=== PATIENT | male | born 1935 | race African-American/Black ===

== ENCOUNTER 2016-11-19 21:45 | Emergency (ER) | payer OTHER ==
[2016-11-19] MEDS ORDERED: NS 1/2 1000 ML IV 1,000 ML IV SCH (22:00)
--- NOTE | 2016-11-19 22:04 | CT ---
EXAM: CT BRAIN WITHOUT CONTRAST INDICATION: Right-sided weakness COMPARISION: Prior exam from June 28, 2016 TECHNIQUE: Routine axial CT of the brain was performed without intravenous contrast. 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 Old right MCA territory infarct noted . There is secon paresh encephalomalacia predominately involving the temporal lobe. The ventricular system is not abnor js dilated. No intra or extra-axial mass or hemorrhage. The cherry-white junction is preserved. The re is no evidence of subacute ischemic change. The basilar cisterns are clear. The skull is intact. The paranasal sinuses and mastoid air cells are clear. IMPRESSION: There is bilateral cortical atrophy as described above. Old right MCA territory infarct noted. No acute abnormality identified. Reported By:
--- NOTE | 2016-11-19 22:10 | DR.GENAD ---
HPI - HPI Comment HPI Comment: PATIENT IS DIABETIC AND HAVE HTN. 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 WAS ACTIVE ALL DAY TODAY. - Complaint/Symptoms Chief Complaint Doctors Comments: AT 21:15PM TONIGHT, GOT UP FROM CHAIR AND FELL ON THE FLOOR. HE WAS NOT TALKING BUT ALERT. HIS RIGHT SIDE WAS WEAK AND RIGHT FACE WAS WEAK. IN ED, SPEECH IS SLURRED. NO FEVER. - Nurses notes reviewed Nurses Notes Review: Yes - Source History Provided: Family Member - Mode of Arrival Mode of Arrival: Stretcher - Timing Came on: Suddenly - Duration Duration: Constant Duration: Minutes - Severity Severity: Severe PMH - PMH Past Medical History: Arthritis, Coronary Artery Disease, CVA, Diabetes, Dyslipidemia, GERD, Hypertension Past Surgical History: No Surgical History: No History - Family History Family Medical History: Diabetes Mellitus, Hypertension - Social History Do you use any recreational Drugs:: No ROS - Review of Systems Constitutional: Weakness, Fatigue. negative: Chills, Fever Eyes: negative: Eye Pain, Discharge ENTM: negative: Ear Pain, Nose Discharge, Nose Congestion, Throat Pain Respiratoy: No Symptoms Reported, Non-Productive Cough, Short of Breath. negative: Wheezing, Hemoptysis Cardiovascular: negative: Chest Pain, Edema, Palpitations Gastrointestinal/Abdominal: negative: Abdominal Pain, Diarrhea, Nausea, Vomiting Genitourinary: negative: Dysuria, Hematuria Neurological: Headache, Weakness, Dizziness, Problems Walking, Speech Problem, Other (RT SIDED WEAKNESS, RIGHT FACIAL WEAKNESS) Musculoskeletal: Back Pain Integumentary: Change in Color Hematologic/Lymphatic: Easy Bleeding, Easy Bruising Endocrine: No Symptoms Reported All Other Systems: Reviewed and Negative PE - Vital Signs Vitals: Temperature 97.8 F Pulse Rate [Apical] 84 Pulse Rate 77 Respiratory Rate 24 Blood Pressure [Right Arm] 128/77 Blood Pressure [Left Arm] 91/55 Blood Pressure 120/81 O2 Sat by Pulse Oximetry 99 - General Limitations: Altered Mental Status General Appearance: Alert - Head Head Exam: Normal Inspection - Eyes Eye exam: PERRL (SMALL EQUAL PUPILS), EOMI (WEAKNESS DOWNWARD MOVEMENT). negative: Scleral Icterus, Conjunctival Injection, Nystagmus, Periorbital Swelling, Periorbital Tenderness - ENT ENT Exam: Normal External Ear Exam External Ear Exam: Normal External Inspection TM/Canal Exam: Bilateral Normal Nose Exam: Normal Nose Exam Mouth Exam: Normal Inspection Throat Exam: Normal Inspection - Neck Neck Exam: Trachea Midline - Chest Chest Inspection: Symmetric Chest Wall Rise - Respiratory Respiratory Exam: Normal Lung Sounds Bilat Respiratory Exam: Bilateral Rhonchi, Lower Rhonchi - Cardiovascular Cardiovascular Exam: Regular Rate, Normal Rhythm, Normal Heart Sounds - Abdominal Exam Abdominal Exam: Normal Bowel Sounds, Soft. negative: Tenderness - Extremities Extremities Exam: Normal Inspection - Back Back Exam: Normal Inspection - Neurologic Neurological Exam: Alert, Oriented X3, Motor Sensory Deficit (RIGHT SIDE MOTOR DEFICIT/WEAKNESS AND SENSORY DEFICIT.), Reflexes Normal, Other (NIH STROKE SCALE TOTAL 8 ON PRESENTATION. SEE FORM.). negative: CN II-XII Intact (SPEECH SLURRED) - Psychiatric Psychiatric Exam: Flat Affect - Skin Skin Exam: Normal Color MDM - Additional Information Additional Information Obtained From: Family - Differential Diagnosis Differential Diagnosis: CVA, DYSARTHRIA, RIGHT SIDED WEAKNESS, RIGHT FACIAL WEAKNESS. Course - Treatment Treatment: SEE ORDERS. PATIENT GIVEN TPN ACCORDING TO PROTOCOL AFTER INFORMED CONSENT WAS OBSTAINED. VOMITED TWICE AFTER MED. GIVEN IV ZOFRAN AND SOME ATIVAN. BEFORE TRANSPORT, PATIENT WAS CALM, SPECH CLEARER AND RT SIDED WEAKNESS WAS RESOLVING. - Consultation Consultation Comments: TELEMED WITH DR. WYNN, NEUROLOGIST FROM [facility], TPA RECOMMENDED AND GIVEN IN ED HERE IN [facility]. DR. ALDANA FROM ED ACCEPTED PATIENT FOR TRANSFER. - Education/Counseling Education/Counseling: Patient, Family, Education Educated On: Treatment, Diagnosis ROR - Labs Reviewed Laboratory Results Reviewed?: Yes Result Diagrams: 11/19/16 22:00 11/19/16 22:00 Laboratory: WBC 8.9 X10^3/uL (3.6-10.0) 11/19/16 22:00 RBC 4.46 X10^6/uL (4.7-6.0) L 11/19/16 22:00 Hgb 13.0 g/dL (13.5-18.0) L 11/19/16 22:00 Hct 38.5 % (42.0-54.0) L 11/19/16 22:00 MCV 86.2 fL (80.0-100.0) 11/19/16 22:00 MCH 29.1 pg (27.0-34.0) 11/19/16 22:00 MCHC 33.8 g/dL (33.0-35.0) 11/19/16 22:00 RDW 14.5 % (11.6-16.5) 11/19/16 22:00 Plt Count 163 X10^3/uL (150.0-450.0) 11/19/16 22:00 MPV 8.7 fL (7.4-11.0) 11/19/16 22:00 Neut % 41.8 % (42.0-75.0) L 11/19/16 22:00 Lymph % 47.3 % (21.0-51.0) 11/19/16 22:00 [place] % 9.3 % (0.0-13.0) 11/19/16 22:00 Eos % 1.2 % (0.9-2.9) 11/19/16 22:00 Baso % 0.4 % (0.2-1.0) 11/19/16 22:00 Neut # 3.7 x10^3/uL (2.2-4.8) 11/19/16 22:00 Lymph # 4.2 X10^3/uL (1.3-2.9) H 11/19/16 22:00 [place] # 0.8 x10^3/uL (0.3-0.8) 11/19/16 22:00 Eos # 0.1 x10^3/uL (0.0-0.2) 11/19/16 22:00 Baso # 0.0 X10^3/uL (0.0-0.1) 11/19/16 22:00 Absolute Nucleated RBC 0.0 /100WBC 11/19/16 22:00 INR Target Range - 11/19/16 22:00 INR 0.98 (0.8-1.3) 11/19/16 22:00 PTT 29.2 SECONDS (22.9-36.5) 11/19/16 22:00 PTT Comment - 11/19/16 22:00 Fibrinogen 487 mg/dL (239-489) 11/19/16 22:00 Sodium 139 mmol/L (136-145) 11/19/16 22:00 Corrected Sodium 140 mmol/L (136-145) 11/19/16 22:00 Potassium 3.4 mmol/L (3.5-5.1) L 11/19/16 22:00 Chloride 102 mmol/L (98-107) 11/19/16 22:00 Carbon Dioxide 27.1 mmol/L (21-32) 11/19/16 22:00 BUN 14 mg/dL (7-18) 11/19/16 22:00 Creatinine 1.29 mg/dL (0.70-1.30) 11/19/16 22:00 Est GFR (MDRD) Af Amer > 60 (>60) 11/19/16 22:00 Est GFR (MDRD) Non-Af 57 (>60) L 11/19/16 22:00 Glucose 136 mg/dL (65-99) H 11/19/16 22:00 Calcium 9.0 mg/dL (8.5-10.1) 11/19/16 22:00 Corrected Calcium TNP 11/19/16 22:00 Magnesium 2.0 mg/dL (1.7-2.9) 11/19/16 22:00 Total Bilirubin 0.30 mg/dL (0.2-1.0) 11/19/16 22:00 AST 25 Units/L (15-37) 11/19/16 22:00 ALT 19 Units/L (12-78) 11/19/16 22:00 Alkaline Phosphatase 59 Units/L (46-116) 11/19/16 22:00 Creatine Kinase 488 Units/L (39-308) H 11/19/16 22:00 CK-MB (CK-2) 1.4 ng/mL (0-4.0) 11/19/16 22:00 CK/CKMB % Calc 0.3 % (<4) 11/19/16 22:00 Troponin I < 0.02 ng/mL (0-1.5) 11/19/16 22:00 Total Protein 7.7 g/dL (6.4-8.2) 11/19/16 22:00 Albumin 3.6 g/dL (3.4-5.0) 11/19/16 22:00 Globulin 4.1 g/dL (2.5-4.5) 11/19/16 22:00 Albumin/Globulin Ratio 0.9 Ratio (1.1-2.1) L 11/19/16 22:00 Triglycerides 102 mg/dL (0-150) 11/19/16 22:00 Cholesterol 153 mg/dL (0-200) 11/19/16 22:00 LDL Cholesterol, Calc 82 mg/dL (0-100) 11/19/16 22:00 HDL Cholesterol 51 mg/dL (40-60) 11/19/16 22:00 Cholesterol/HDL Ratio 3.0 (0.0-5.0) 11/19/16 22:00 Specimen Type Catherized urine 11/19/16 22:10 Urine Color Yellow (YELLOW) 11/19/16 22:10 Urine Appearance Clear (CLEAR) 11/19/16 22:10 Urine pH 5.0 (5.0 - 8.0) 11/19/16 22:10 Ur Specific [place] 1.020 (1.000-1.030) 11/19/16 22:10 Urine Protein 1+ (NEGATIVE) 11/19/16 22:10 Urine Glucose (UA) Negative (NEGATIVE) 11/19/16 22:10 Urine Ketones Negative (NEGATIVE) 11/19/16 22:10 Urine Occult Blood 2+ (NEGATIVE) 11/19/16 22:10 Urine Nitrite Negative (NEGATIVE) 11/19/16 22:10 Urine Bilirubin Negative (NEGATIVE) 11/19/16 22:10 Urine Urobilinogen Normal (NORMAL) 11/19/16 22:10 Ur Leukocyte Esterase Negative (NEGATIVE) 11/19/16 22:10 Urine RBC 2-6 /HPF (NEGATIVE) 11/19/16 22:10 Urine WBC 0-3 /HPF (NEGATIVE) 11/19/16 22:10 Ur Squamous Epith Cells Few /HPF (NEGATIVE) 11/19/16 22:10 Urine Bacteria Negative /HPF (NEGATIVE) 11/19/16 22:10 Urine Mucus Moderate /HPF (NEGATIVE) 11/19/16 22:10 Ur Culture Indicated? No/not indicated 11/19/16 22:10 - XRAY XRAY Interpreted by: Radiologist XRAY Findings: REPORT DISCUSS WITH AND FAMILY AND PATIENT. - EKG Rhythm: NSR (EKG NOTED) - Diagnosis Discharge Problem: Dysarthria, Right sided weakness CVA (cerebral vascular accident) Qualifiers: CVA mechanism: unspecified Qualified Code(s): I63.9 - Cerebral infarction, unspecified - Discharge Plan Disposition: XFER [facility]M HOSP Condition: Stable - Follow ups/Referrals Follow ups/Referrals: KRAIG PISANO [Primary Care Provider] - 3 days - Instructions
[2016-11-19 22:11] LABS: BASOPHILS % (AUTO) 0.4 % (0.2-1.0); EOSINOPHILS # (AUTO) 0.1 x10^3/uL (0.0-0.2); EOSINOPHILS % (AUTO) 1.2 % (0.9-2.9); HEMATOCRIT 38.5 % (42.0-54.0); LYMPHOCYTES # (AUTO) 4.2 X10^3/uL (1.3-2.9); LYMPHOCYTES % (AUTO) 47.3 % (21.0-51.0); MEAN CORPUSCULAR HEMOGLOBIN 29.1 pg (27.0-34.0); MEAN CORPUSCULAR HGB CONC 33.8 g/dL (33.0-35.0); MEAN CORPUSCULAR VOLUME 86.2 fL (80.0-100.0); MEAN PLATELET VOLUME 8.7 fL (7.4-11.0); MONOCYTES # (AUTO) 0.8 x10^3/uL (0.3-0.8); MONOCYTES % (AUTO) 9.3 % (0.0-13.0); NEUTROPHILS # (AUTO) 3.7 x10^3/uL (2.2-4.8); NEUTROPHILS % (AUTO) 41.8 % (42.0-75.0); PLATELET COUNT 163 X10^3/uL (150.0-450.0); RED BLOOD COUNT 4.46 X10^6/uL (4.7-6.0); RED CELL DISTRIBUTION WIDTH 14.5 % (11.6-16.5); WHITE BLOOD COUNT 8.9 X10^3/uL (3.6-10.0)
[2016-11-19 22:13] VITALS: BMI 30.3
--- NOTE | 2016-11-19 22:16 | RAD ---
AP Chest Indication: Right-sided weakness Comparison: 09/27/2015 Findings: The trachea is midline. The cardiac silhouette is unremarkable. The lungs are clear without focal infiltrate or effusion. The bony thorax is unremarkable. IMPRESSION: 1. No acute cardiopulmonary abnormality or change from prior exam. Reported By:
[2016-11-19 22:24] LABS: BLOOD UREA NITROGEN 14 mg/dL (7-18); CARBON DIOXIDE 27.1 mmol/L (21-32); CHLORIDE 102 mmol/L (98-107); COR NA(FOR HYPERGLY) 140 mmol/L (136-145); CREATININE 1.29 mg/dL (0.70-1.30); GLUCOSE 136 mg/dL (65-99); SODIUM 139 mmol/L (136-145); TROPONIN I < 0.02 ng/mL (0-1.5); eGFR BLACK RACES > 60 (>60); eGFR NON BLACK RACES 57 (>60)
[2016-11-19 22:29] LABS: ALANINE AMINOTRANSFERASE 19 Units/L (12-78); ALBUMIN 3.6 g/dL (3.4-5.0); ALKALINE PHOSPHATASE 59 Units/L (46-116); ASPARTATE AMINO TRANSFERASE 25 Units/L (15-37); CKMB % 0.3 % (<4); CREATINE KINASE 488 Units/L (39-308); CREATINE KINASE MB 1.4 ng/mL (0-4.0); TOTAL PROTEIN 7.7 g/dL (6.4-8.2)
[2016-11-19 22:30] LABS: BILIRUBIN,URINE NEGATIVE (NEGATIVE); BLOOD/HEMOGLOBIN,URINE 2+ (NEGATIVE); GLUCOSE, URINE NEGATIVE (NEGATIVE); KETONES,URINE NEGATIVE (NEGATIVE); LEUKOCYTE ESTERASE ,URINE NEGATIVE (NEGATIVE); NITRITES,URINE NEGATIVE (NEGATIVE); PROTEIN,URINE 1+ (NEGATIVE); UROBILINOGEN,URINE NORMAL (NORMAL)
[2016-11-19] MEDS ORDERED: NS 1/2 1000 ML IV 1,000 ML IV ONE (22:31)
[2016-11-19 22:38] LABS: APPEARANCE,URINE CLEAR (CLEAR); BACTERIA,URINE NEGATIVE /HPF (NEGATIVE); COLOR,URINE YELLOW (YELLOW); MUCUS,URINE MODERATE /HPF (NEGATIVE); SQUAMOUS EPITHELIAL CELL,UR FEW /HPF (NEGATIVE)
[2016-11-19] MEDS ORDERED: ACTIVASE IVP ONE (23:58)
[2016-11-20] MEDS ORDERED: ZOFRAN INJ 4 MG VIAL ONE ×2 (00:33→00:47)
[2016-11-20] MEDS ORDERED: ZOFRAN INJ 4 MG VIAL IVP ONE ×2 (00:35→00:47)
[2016-11-20] MEDS ORDERED: ATIVAN INJ 2 MG VIAL IVP ONE (00:50)
[2016-11-20] MEDS ORDERED: ATIVAN INJ 2 MG VIAL ONE (00:51)
[2016-11-20 01:21] VITALS: BP 91/55
== END 2016-11-20 01:21 | disposition short-term general hospital (02) ==
LOC: ER 21:48
DX: I63.9 Cerebral infarction, unspecified (principal); R47.1 Dysarthria and anarthria; R53.1 Weakness; Z79.01 Long term (current) use of anticoagulants
CPT/HCPCS: 36415; 51702; 70450; 71010; 80053; 80061; 81001; 82550; 82553; 83735; 84484; 85025; 85384; 85610; 85730; 93005; 93010; 93041; 96365; 96367; 96374; 96375; 99285; A4222; J2060; J2405; J2997